=== PATIENT | male | born 1975 | race Caucasian/White ===

== ENCOUNTER → 2021-08-03 | Outpatient (CLI) | payer SELFPAY ==
[~2021-08-03] MED LIST: CEFTIN250 MG PO; CEFTRIAXONE2 GM IJ; CEFTRIAXONE2 GM IV; CLARITIN10 MG PO; COREG3.125 MG PO; COUMADIN7.5 M1 PO; HCTZ/LISINOPRIL1 TA3 PO; LASIX40 MG PO; LEADER ASPIRIN325 MG PO; LISINOPRIL10 M1 PO; NKHM; NYAMYC100000 U/G T; POTASSIUM CHLO20 ME3 PO; PROVENTIL0.09 MG/AC IH; TOPROL XL25 MG PO; XARE15TA PO; XARELTO10 MG PO; ZITHROMAX Z PA250 MG PO
== END | disposition home or self-care (01) ==
LOC: RESCLI 09:26
PROVIDERS: ATTEND Internal Medicine
DX: I82.91 Chronic embolism and thrombosis of unspecified vein (principal); E11.9 Type 2 diabetes mellitus without complications; I10 Essential (primary) hypertension; E66.01 Morbid (severe) obesity due to excess calories; G47.33 Obstructive sleep apnea (adult) (pediatric); R60.9 Edema, unspecified; B37.9 Candidiasis, unspecified; Z79.899 Other long term (current) drug therapy; Z88.8 Allergy status to other drugs, medicaments and biological substances

== ENCOUNTER 2024-12-10 05:24 | Inpatient (IN) | payer SELFPAY ==
[~2024-12-10] VITALS: Ht 177.8 cm; Wt 283.0 kg
[2024-12-10 05:36] VITALS: BP 152/81
[2024-12-10] MEDS ORDERED: dilTIAZem Hydrochloride 25 MG/5 ML VIAL IV ONE (05:55)
[2024-12-10 06:14] LABS: BUN 19 mg/dl (9-23); CHLORIDE 103 mmol/L (98-107); POTASSIUM 4.2 mmol/L (3.4-5.1)
[2024-12-10] MEDS ORDERED: MAGNESIUM OXIDE 400 MG TAB PO ONE (06:45)
[2024-12-10] MEDS ORDERED: dilTIAZem Hydrochloride 100 ML IV SCH (07:00)
[2024-12-10 07:01] LABS: HEMATOCRIT 54.5 % (42.0-52.0); MEAN CELL VOLUME 88.9 fl (80.0-94.0); MEAN CORPUSCULAR HGB 28.5 pg (27.0-31.0); MEAN CORPUSCULAR HGB CONC 32.1 g/dl (33.0-37.0); MEAN PLATELET VOLUME 10.2 fl (9.6-12.3); PLATELET COUNT AUTOMATED 171 10*3/uL (130-400); RED BLOOD COUNT 6.13 10*6/uL (4.50-5.90); RED CELL DISTRI WIDTH 14.8 % (0-14.5); WHITE BLOOD COUNT 13.2 10*3/uL (4.8-10.8)
[2024-12-10 07:02] LABS: MANUAL DIFF REFLEX YES
[2024-12-10 07:31] LABS: TOTAL CELLS COUNTED 100 #CELLS
[2024-12-10 07:32] LABS: PLATELET SUFFICIENCY LOW (NORMAL); POLYCHROMASIA SLIGHT
[2024-12-10 07:39] VITALS: BP 128/69
[2024-12-10] MEDS ORDERED: Ondansetron Hydrochloride 4 MG/2 ML VIAL IV PRN (08:25)
[2024-12-10] MEDS ORDERED: BISACODYL 5 MG TAB PO PRN (08:25)
[2024-12-10] MEDS ORDERED: ACETAMINOPHEN 325 MG TAB PO PRN (08:25)
[2024-12-10 13:13] VITALS: BP 135/83
[2024-12-10 15:00] VITALS: BP 137/76
[2024-12-10] MEDS ORDERED: PERFLUTREN PROTEIN-A MICROSPHR 3 ML VIAL IV ONE (15:55)
[2024-12-10] MEDS ORDERED: RIVAROXABAN 20 MG TAB PO SCH (18:00)
[2024-12-10 20:15] VITALS: BP 115/65
[2024-12-10 22:00] VITALS: BP 107/54
[2024-12-11] VITALS (8 sets, daily range): BP systolic 112–142; BP diastolic 57–77
[2024-12-11] MEDS ORDERED: SODIUM CHLORIDE 0.9% 500 ML IV ONE (04:30)
[2024-12-11 06:02] LABS: ALKALINE PHOSPHATASE 49 U/L (46-116); BUN 17 mg/dl (9-23); CHLORIDE 101 mmol/L (98-107); CHOLESTEROL 75 mg/dL (<200); FREE T4 1.05 ng/dl (0.89-1.76); LDL CHOLESTEROL 17 mg/dL (9-159); POTASSIUM 3.7 mmol/L (3.4-5.1); SGPT/ALT 13 U/L (5-49); TOTAL PROTEIN 6.4 gm/dL (6.0-8.0); TRIGLYCERIDES 61 mg/dl (<150)
[2024-12-11 06:10] LABS: BASO % 0.3 % (0.0-1.0); EOS % 0.1 % (1.0-4.0); HEMATOCRIT 47.8 % (42.0-52.0); MEAN CORPUSCULAR HGB CONC 32.2 g/dl (33.0-37.0); MEAN PLATELET VOLUME 10.8 fl (9.6-12.3); MONO # 0.8 10*3/uL (0.1-1.0); MONO % 7.1 % (3.0-9.0); NEUT # 8.7 10*3/uL (2.3-7.9); PLATELET COUNT AUTOMATED 162 10*3/uL (130-400); RED BLOOD COUNT 5.31 10*6/uL (4.50-5.90); WHITE BLOOD COUNT 10.7 10*3/uL (4.8-10.8)
[2024-12-11 06:12] LABS: BILIRUBIN Negative (Negative); BLOOD Negative (Negative); CLARITY Clear (Clear); COLOR Orange (Yellow); GLUCOSE Negative (Negative); KETONE Trace (Negative); LEUKO ESTERASE Trace (Negative); NITRITE Negative (Negative); SPECIFIC GRAVITY 1.025 (1.001-1.030)
[2024-12-11 07:00] LABS: BACTERIA 1+
[2024-12-11] MEDS ORDERED: Metoprolol Tartrate 50 MG TAB PO SCH (07:00)
[2024-12-11 07:50] LABS: VITAMIN D, 25-HYDROXY 11.2 ng/mL (30-100)
[2024-12-11] MEDS ORDERED: cefTRIAXone Sodium 1 GM in SYRINGE INFUSION 10 ML IV SCH (10:00)
[2024-12-11] MEDS ORDERED: ERGOCALCIFEROL 50,000 IU CAP (1.25 MG) PO ONE (11:20)
[2024-12-11] MEDS ORDERED: FOLIC ACID 1 MG TAB PO SCH (11:23)
[2024-12-11] MEDS ORDERED: Vancomycin Hydrochloride 1,000 MG in SODIUM CHLORIDE 0.9% 250 ML IV SCH (22:30)
[2024-12-11] MEDS ORDERED: Meropenem 1 GM in SODIUM CHLORIDE 0.9% 100 ML IV SCH (22:35)
[2024-12-11] MEDS ORDERED: Meropenem 1 GM in SODIUM CHLORIDE 0.9% 100 ML IV ONE (23:00)
[2024-12-12] MEDS ORDERED: VANCOMYCIN/WATER FOR INJ (PEG) 400 ML IV SCH
[2024-12-12] MEDS ORDERED: Meropenem 1 GM in SODIUM CHLORIDE 0.9% 100 ML IV SCH (06:00)
[2024-12-12 06:07] LABS: BASO # 0.1 10*3/uL (0.0-0.1); BASO % 0.5 % (0.0-1.0); EOS % 0.4 % (1.0-4.0); HEMATOCRIT 47.7 % (42.0-52.0); MEAN CELL VOLUME 89.8 fl (80.0-94.0); MEAN CORPUSCULAR HGB 28.2 pg (27.0-31.0); MEAN CORPUSCULAR HGB CONC 31.4 g/dl (33.0-37.0); MEAN PLATELET VOLUME 10.9 fl (9.6-12.3); MONO # 0.9 10*3/uL (0.1-1.0); MONO % 9.8 % (3.0-9.0); NEUT # 7.1 10*3/uL (2.3-7.9); NEUT % 73.9 % (47.0-73.0); PLATELET COUNT AUTOMATED 153 10*3/uL (130-400); RED BLOOD COUNT 5.31 10*6/uL (4.50-5.90); RED CELL DISTRI WIDTH 14.9 % (0-14.5); WHITE BLOOD COUNT 9.6 10*3/uL (4.8-10.8)
[2024-12-12 06:29] LABS: BUN 13 mg/dl (9-23); CHLORIDE 102 mmol/L (98-107); LIPASE 29 U/L (12-53); POTASSIUM 3.8 mmol/L (3.4-5.1)
[2024-12-12 08:00] VITALS: BP 131/82
[2024-12-12] MEDS ORDERED: Doxycycline Hyclate 100 MG CAPSULE PO SCH (10:00)
[2024-12-12 12:00] VITALS: BP 130/83
[2024-12-12 20:00] VITALS: BP 101/69
[2024-12-13] VITALS: BP 106/68
[2024-12-13 07:40] LABS: BASO # 0.1 10*3/uL (0.0-0.1); BASO % 0.6 % (0.0-1.0); EOS # 0.1 10*3/uL (0.0-0.4); EOS % 0.8 % (1.0-4.0); HEMATOCRIT 48.2 % (42.0-52.0); MEAN CELL VOLUME 89.6 fl (80.0-94.0); MEAN CORPUSCULAR HGB 28.6 pg (27.0-31.0); MEAN PLATELET VOLUME 10.5 fl (9.6-12.3); MONO # 0.8 10*3/uL (0.1-1.0); MONO % 8.7 % (3.0-9.0); NEUT # 6.8 10*3/uL (2.3-7.9); NEUT % 77.2 % (47.0-73.0); PLATELET COUNT AUTOMATED 178 10*3/uL (130-400); RED BLOOD COUNT 5.38 10*6/uL (4.50-5.90); RED CELL DISTRI WIDTH 14.7 % (0-14.5); WHITE BLOOD COUNT 8.8 10*3/uL (4.8-10.8)
[2024-12-13 08:00] VITALS: BP 128/85
[2024-12-13 08:01] LABS: BUN 16 mg/dl (9-23); CHLORIDE 102 mmol/L (98-107); POTASSIUM 4.2 mmol/L (3.4-5.1)
[2024-12-13 11:58] VITALS: BP 121/75
[2024-12-13] MEDS ORDERED: VANCOMYCIN/WATER FOR INJ (PEG) 400 ML IV SCH (12:00)
[2024-12-13 16:00] VITALS: BP 115/85
[2024-12-13 20:00] VITALS: BP 124/85
[2024-12-13] MEDS ORDERED: ERTAPENEM1 GM IV (23:22)
[2024-12-13] MEDS ORDERED: DOXYCYCLINE HY100 M3 PO (23:22)
[2024-12-14] VITALS: BP 115/88
[2024-12-14 05:45] LABS: BUN 16 mg/dl (9-23); CHLORIDE 102 mmol/L (98-107); POTASSIUM 4.3 mmol/L (3.4-5.1)
[2024-12-14 06:09] LABS: BASO # 0.1 10*3/uL (0.0-0.1); BASO % 0.7 % (0.0-1.0); EOS # 0.2 10*3/uL (0.0-0.4); EOS % 1.8 % (1.0-4.0); HEMATOCRIT 49.9 % (42.0-52.0); MEAN CELL VOLUME 87.9 fl (80.0-94.0); MEAN CORPUSCULAR HGB 28.3 pg (27.0-31.0); MEAN CORPUSCULAR HGB CONC 32.3 g/dl (33.0-37.0); MEAN PLATELET VOLUME 10.6 fl (9.6-12.3); MONO # 0.8 10*3/uL (0.1-1.0); MONO % 8.7 % (3.0-9.0); NEUT # 6.2 10*3/uL (2.3-7.9); NEUT % 70.9 % (47.0-73.0); PLATELET COUNT AUTOMATED 216 10*3/uL (130-400); RED BLOOD COUNT 5.68 10*6/uL (4.50-5.90); RED CELL DISTRI WIDTH 14.8 % (0-14.5); WHITE BLOOD COUNT 8.7 10*3/uL (4.8-10.8)
[2024-12-14 08:00] VITALS: BP 129/87
[2024-12-14] MEDS ORDERED: Cholecalciferol 5,000 IU CAP (125 MCG) PO SCH (10:00)
[2024-12-14 10:06] LABS: CYTOMEGALOVIRUS AB, IGG <0.60 U/mL (0.00-0.59)
[2024-12-14 12:00] VITALS: BP 143/84
[2024-12-14 16:00] VITALS: BP 128/82
[2024-12-14 20:00] VITALS: BP 148/87
[2024-12-15] VITALS: BP 125/73
[2024-12-15 05:57] LABS: BUN 17 mg/dl (9-23); CHLORIDE 101 mmol/L (98-107); POTASSIUM 4.2 mmol/L (3.4-5.1)
[2024-12-15 08:00] VITALS: BP 145/85
[2024-12-15] MEDS ORDERED: Ertapenem Sodium 1 GM in SODIUM CHLORIDE 0.9% 50 ML IV ONE (08:00)
[2024-12-15] MEDS ORDERED: XARE20MG PO (08:59)
[2024-12-15] MEDS ORDERED: VITAMIN D3125 MC1 PO (09:00)
[2024-12-15] MEDS ORDERED: METOPROLOL TART50 M1 PO (09:00)
[2024-12-15] MEDS ORDERED: **NF** (Ertapenem 1 GM) IV ONE (09:00)
[2024-12-15] MEDS ORDERED: DOXYCYCLINE HY100 M3 PO (09:02)
== END 2024-12-15 13:00 | disposition home or self-care (01) | DRG 872 ==
LOC: ED 05:24 → ICCU 07:01 → EDHOLD 07:01 → ICCU 14:14
PROVIDERS: Internal Medicine; Internal Medicine Infectious Disease; Registered Nurse; Student in an Organized Health Care Education/Training Program; ADMIT Internal Medicine; ATTEND Internal Medicine
PROC: 5A09357 Assistance with Respiratory Ventilation, Less than 24 Consecutive Hours, Continuous Positive Airway Pressure (ICD-10-PCS; principal; 2024-12-11)
PROC: 5A09357 Assistance with Respiratory Ventilation, Less than 24 Consecutive Hours, Continuous Positive Airway Pressure (ICD-10-PCS; 2024-12-12)
PROC: 5A09357 Assistance with Respiratory Ventilation, Less than 24 Consecutive Hours, Continuous Positive Airway Pressure (ICD-10-PCS; 2024-12-13)
DX: A41.9 Sepsis, unspecified organism (principal); N39.0 Urinary tract infection, site not specified; E66.2 Morbid (severe) obesity with alveolar hypoventilation; E87.1 Hypo-osmolality and hyponatremia; E44.0 Moderate protein-calorie malnutrition; R17 Unspecified jaundice; Z68.45 Body mass index [BMI] 70 or greater, adult; Z20.822 Contact with and (suspected) exposure to COVID-19; I48.91 Unspecified atrial fibrillation; I27.81 Cor pulmonale (chronic); R73.9 Hyperglycemia, unspecified; E55.9 Vitamin D deficiency, unspecified; E53.8 Deficiency of other specified B group vitamins; Z87.891 Personal history of nicotine dependence; Z86.711 Personal history of pulmonary embolism; Z91.199 Patient's noncompliance with other medical treatment and regimen due to unspecified reason; Z88.8 Allergy status to other drugs, medicaments and biological substances; Z82.49 Family history of ischemic heart disease and other diseases of the circulatory system